=== PATIENT | female | born 2000 | race African-American/Black ===

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

== ENCOUNTER 2020-03-13 13:06 | Emergency (ER) | payer SELFPAY ==
[2020-03-13] MEDS ORDERED: NORMAL SALINE 1000 ML 1,000 ML IV ONE ×4 (13:31→18:47)
[2020-03-13] MEDS ORDERED: ONDANSETRON HCL INJ/PF 4 MG/2 ML SDV IV ONE ×3 (13:31→17:10)
[2020-03-13] MEDS ORDERED: MORPHINE SULFATE 10 MG/ML INJ IV ONE ×3 (13:31→18:47)
--- NOTE | 2020-03-13 13:34 | ER Document Report ---
ED Medical Screen (RME) - General Chief Complaint: Abdominal Pain Stated Complaint: ABDOMINAL PAIN,VOMITING Time Seen by Provider: 03/13/20 13:28 Mode of Arrival: Wheelchair Information source: Patient, Relative Notes: Patient is a 20-year-old female comes emergency room complaining of abdominal pain nausea vomiting diarrhea. Patient states she has a history of gastroparesis last attack was approximately a year ago she was diagnosed with it. She states she woke up this morning severe abdominal pain is vomited multiple times and has had one bout of diarrhea. Patient denies any other me dical problems. She denies any medications. She denies any history of . Patient was sitting in the lobby and "passed out". Her significant other was with her she did not hurt herself when she fell out of the wheelchair. Patient is writhing in pain on physical exam. Physical examination: Patient is a well-nourished well-developed 20-year-old female who is in moderate amount of discomfort and pain. Cardiac: Vital signs have not been performed yet but on auscultation patient sounds like she is tachycardic but no murmurs heard. Lung: Bilateral breath sounds breath sounds decreased throughout no rhonchi rales or wheeze heard. Abdomen: In the sitting position in a wheelchair patient is writhing around. Bowel sounds are depleted throughout all 4 quads. Minimal heard in the left l ower quadrant. Patient is diffusely tender in the abdomen. I have greeted and performed a rapid initial assessment of this patient. A comprehensive ED assessment and evaluation of the patient, analysis of test results and completion of the medical decision making process will be conducted by additional ED providers. Dictation of this chart was performed using voice recognition software; therefore, there may be some unintended grammatical errors. TRAVEL OUTSIDE OF THE [place] IN LAST 30 DAYS: No - Related Data Allergies/Adverse Reactions: amoxicillin [From Augmentin] Allergy (Verified 10/30/19 14:29) clavulanic acid [From Augmentin] Allergy (Verified 10/30/19 14:29) egg Allergy (Verified 10/30/19 14:29) Vomiting milk Allergy (Verified 10/30/19 14:29) Vomiting Past Medical History Pulmonary Medical History: Reports: Hx Asthma GI Medical History: Reports: Hx Gastroesophageal Reflux Disease - Immunizations Hx Diphtheria, Pertussis, Tetanus Vaccination: Yes
[2020-03-13 14:06] LABS: ABSOLUTE LYMPHOCYTES (AUTO) 1.9 10^3/uL (0.5-4.7); ABSOLUTE MONOCYTES (AUTO) 0.5 10^3/uL (0.1-1.4); ABSOLUTE NEUT (AUTO) 7.4 10^3/uL (1.7-8.2); APPEARANCE,URINE CLEAR; BASOPHILS % (AUTO) 0.5 % (0-2); BILIRUBIN,URINE NEGATIVE (NEGATIVE); COLOR,URINE YELLOW; EOSINOPHILS % (AUTO) 0.1 % (0-6); GLUCOSE, URINE NEGATIVE (NEGATIVE); HEMATOCRIT 44.7 % (36.0-47.0); HEMOGLOBIN 15.1 g/dL (12.0-15.5); KETONES,URINE 20 mg/dL (NEGATIVE); LEUKOCYTE ESTERASE,URINE NEGATIVE (NEGATIVE); LYMPHOCYTES % (AUTO) 19.6 % (13-45); MEAN CORPUSCULAR HEMOGLOBIN 30.7 pg (27.0-33.4); MEAN CORPUSCULAR HGB CONC 33.8 g/dL (32.0-36.0); MEAN CORPUSCULAR VOLUME 91 fl (80-97); MONOCYTES % (AUTO) 5.1 % (3-13); NITRITE,URINE NEGATIVE (NEGATIVE); PLATELET COUNT 269 10^3/uL (150-450); PROTEIN,URINE 30 mg/dL (NEGATIVE); RED BLOOD COUNT 4.93 10^6/uL (3.72-5.28); RED CELL DISTRIBUTION WIDTH 14.2 % (11.5-14.0); SEGMENTED NEUTROPHILS % (AUTO) 74.7 % (42-78); TOTAL CELLS COUNTED % (AUTO) 100 %; URINE SPECIFIC GRAVITY 1.021; UROBILINOGEN,URINE NEGATIVE mg/dL (<2.0); WHITE BLOOD COUNT 9.9 10^3/uL (4.0-10.5)
[2020-03-13 14:33] LABS: ALKALINE PHOSPHATASE 81 U/L (38-126); ANION GAP 18 (5-19); ASPARTATE AMINO TRANSFERASE 25 U/L (14-36); BILIRUBIN,TOTAL 0.7 mg/dL (0.2-1.3); BLOOD UREA NITROGEN 7 mg/dL (7-20); CALCIUM 10.4 mg/dL (8.4-10.2); CARBON DIOXIDE 12 mmol/L (22-30); CHLORIDE 110 mmol/L (98-107); GLUCOSE 109 mg/dL (75-110); POTASSIUM 3.9 mmol/L (3.6-5.0); TOTAL PROTEIN 8.7 g/dL (6.3-8.2); URINE BARBITURATES SCREEN NEGATIVE; URINE BENZODIAZEPINES SCREEN NEGATIVE; URINE COCAINE SCREEN NEGATIVE; URINE METHADONE SCREEN NEGATIVE; URINE PHENCYCLIDINE SCREEN NEGATIVE
[2020-03-13 14:36] LABS: URINE AMPHETAMINES SCREEN NEGATIVE; URINE MARIJUANA (THC) SCREEN UNCONFIRMED POSITIVE
[2020-03-13] MEDS ORDERED: DICYCLOMINE HCL 20 MG TABLET PO ONE (17:07)
--- NOTE | 2020-03-13 17:16 | ER Document Report ---
ED General - General Chief Complaint: Abdominal Pain Stated Complaint: ABDOMINAL PAIN,VOMITING Time Seen by Provider: 03/13/20 13:28 Mode of Arrival: Wheelchair Notes: Patient presents to the ER for evaluation of generalized abdominal pain with nausea, vomiting, diarrhea that began this morning. 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 Patient admits to marijuana and alcohol use yesterday to celebrate Thanksgiving last night. She denies fever. She denies cough or congestion. She denies low back pain or dysuria. Nursing notes reviewed and past medical, social, and family histories reviewed and validated. TRAVEL OUTSIDE OF THE [place] IN LAST 30 DAYS: No - Related Data Allergies/Adverse Reactions: amoxicillin [From Augmentin] Allergy (Verified 10/30/19 14:29) clavulanic acid [From Augmentin] Allergy (Verified 10/30/19 14:29) egg Allergy (Verified 10/30/19 14:29) Vomiting milk Allergy (Verified 10/30/19 14:29) Vomiting Past Medical History - General Information source: Patient, Relative - Social History Smoking Status: Current Every Day Smoker Cigarette use (# per day): Yes - 10 Chew tobacco use (# tins/day): No Smoking Education Provided: Yes Frequency of alcohol use: Social Drug Abuse: Marijuana Lives with: Family Family History: Reviewed & Not Pertinent Patient has suicidal ideation: No Patient has homicidal ideation: No - Past Medical History Cardiac Medical History: Reports: None Pulmonary Medical History: Reports: Hx Asthma EENT Medical History: Reports: None Neurological Medical History: Reports: None Endocrine Medical History: Reports: None Renal/ Medical History: Reports: None Malignancy Medical History: Reports: None GI Medical History: Reports: Hx Gastroesophageal Reflux Disease, Other - Gastroparesis Musculoskeletal Medical History: Reports None Skin Medical History: Reports None Psychiatric Medical History: Reports: None Traumatic Medical History: Reports: None Infectious Medical History: Reports: None Past Surgical History: Reports: None - Immunizations Immunizations up to date: Yes Hx Diphtheria, Pertussis, Tetanus Vaccination: Yes Review of Systems - Review of Systems Notes: Constitutional: Negative for fever. HENT: Negative for sore throat. Eyes: Negative for visual changes. Cardiovascular: Negative for chest pain. Respiratory: Negative for shortness of breath. Gastrointestinal: Positive for abdominal pain. Positive for vomiting and diarrhea. Genitourinary: Negative for dysuria. Musculoskeletal: Negative for back pain. Skin: Negative for rash. Neurological: Negative for headaches, weakness or numbness. 10 point ROS negative except as marked above and in HPI. Physical Exam - Vital signs Vitals: Temp Pulse Resp BP Pulse Ox 97.5 F 66 20 121/69 100 03/13/20 17:47 03/13/20 17:47 03/13/20 17:47 03/13/20 17:47 03/13/20 17:47 - Notes Notes: CONSTITUTIONAL: The patient appears to be in pain. She is in mild distress. SKIN: Warm, dry, and intact without rash EYES: Extraocular movements are grossly intact, clear conjunctiva HENT: Normocephalic, atraumatic, moist mucus membranes NECK: No obvious swelling, normal range of motion PULMONARY: Normal chest rise and fall. Breath sounds clear and equal bilaterally. No respiratory distress or stridor CARDIOVASCULAR: Regular rate. No murmurs, rubs, gallops. Distal extremities are warm and well perfused. ABDOMINAL: The abdomen is soft. There is tenderness in the generalized distribution. NEUROLOGIC: Normal speech, moves all extremities. Cranial nerves are within normal limits. 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 There is good strength and sensation in bilateral lower extremitie s. There is no arm or leg drift noted. MUSCULOSKELETAL: No gross deformities, atraumatic PSYCHIATRIC: Normal mood and affect Course - Re-evaluation Re-evalutation: 03/13/20 19:31 The patient feels much improved following treatment. She is refusing a repeat lactic acid because she is ready to go. She is aware that elevated lactic acid could be a sign of a metabolic or infectious issue. She will not stay for further work-up. - Vital Signs Vital signs: Temp Pulse Resp BP Pulse Ox 97.5 F 66 20 121/69 100 03/13/20 17:47 03/13/20 17:47 03/13/20 17:47 03/13/20 17:47 03/13/20 17:47 - Laboratory Result Diagrams: 03/13/20 13:45 03/13/20 13:45 Laboratory results interpreted by me: 03/13/20 03/13/20 03/13/20 13:45 13:45 13:45 RDW 14.2 H Chloride 110 H Carbon Dioxide 12 L Lactic Acid 5.3 H Calcium 10.4 H Total Protein 8.7 H Urine Protein Urine Ketones 03/13/20 13:45 RDW Chloride Carbon Dioxide Lactic Acid Calcium Total Protein Urine Protein 30 H Urine Ketones 20 H Discharge - Discharge Clinical Impression: Elevated lactic acid level, Nausea vomiting and diarrhea, Generalized abdominal pain Condition: Stable Disposition: AGAINST MEDICAL ADVICE Instructions: Abdominal Pain ([facility]) Prescriptions: Ondansetron [Zofran Odt 4 mg Tablet] 1 tab PO Q6HP PRN #12 tab.rapdis PRN Reason: For Nausea/Vomiting
[2020-03-13 17:48] VITALS: BP 121/69
[2020-03-13] MEDS ORDERED: METOCLOPRAMIDE HCL INJ/PF 10 MG/2 ML SDV IV ONE (18:47)
--- NOTE | 2020-03-13 18:50 | RADIOLOGY REPORT (SQ) ---
EXAM DESCRIPTION: CT ABD/PELVIS WITH IV ONLY IMAGES COMPLETED DATE/TIME: 03/13/2020 6:38 pm REASON FOR STUDY: abd pain COMPARISON: None. TECHNIQUE: CT scan of the abdomen and pelvis performed using helical scanning technique with dynamic intravenous contrast injection. No oral contrast. Images reviewed with lung, soft tissue, and bone windows. Reconstructed coronal and sagittal MPR images reviewed. Delayed images for evaluation of the urinary system also acquired. All images stored on PACS. All CT scanners at this facility use dose modulation, iterative reconstruction, and/or weight based d osing when appropriate to reduce radiation dose to as low as reasonably achievable (ALARA). [facility]: Dose Right [facility]: CareDose [facility]: Dose Right [facility]: Teradose 4D [facility]: A's Child CONTRAST TYPE AND DOSE: contrast/concentration: Isovue 350.00 mmol/ml; Total Contrast Delivered: 55. 0 ml; Total Saline Delivered: 43.8 ml RENAL FUNCTION: None required. The patient is less than 50 years old. RADIATION DOSE: CT Rad equipment meets quality standard of care and radiation dose reduction techniq ues were employed. CTDIvol: 4.8 - 4.9 mGy. DLP: 474 mGy-cm.. LIMITATIONS: None. FINDINGS: LOWER CHEST: No significant findings. No nodules or infiltrates. LIVER: Normal size. No masses. No dilated ducts. SPLEEN: Normal size. No focal lesions. PANCREAS: No masses. No significant calcifications. No adjacent inflammation or peripancreatic fluid collections. Pancreatic duct not dilated. GALLBLADDER: No identified stones by CT criteria. No inflammatory changes to suggest cholecystitis. ADRENAL GLANDS: No significant masses or asymmetry. RIGHT KIDNEY AND URETER: No solid masses. Minimal peripheral calculus. No hydronephrosis or hydro ureter. LEFT KIDNEY AND URETER: No solid masses. No significant calcifications. No hydronephrosis or hydr oureter. AORTA AND VESSELS: No aneurysm. No dissection. Renal arteries, SMA, celiac without stenosis. RETROPERITONEUM: No retroperitoneal adenopathy, hemorrhage or masses. BOWEL AND PERITONEAL CAVITY: No masses or inflammatory changes. No free fluid or peritoneal masses. APPENDIX: Normal. PELVIS: No mass. No free fluid. Normal bladder. ABDOMINAL WALL: No masses. No hernias. BONES: No significant or acute findings. OTHER: No other significant finding. IMPRESSION: NO SIGNIFICANT OR ACUTE FINDING IN THE ABDOMEN OR PELVIS ON CT SCAN WITH IV CONTRAST. TECHNICAL DOCUMENTATION: JOB ID: [id number] Quality ID # [id number]: Final reports with documentation of one or more dose reduction techniques (e.g., Au tomated exposure control, adjustment of the mA and/or kV according to patient size, use of iterative reconstruction technique) 2010 [employer]- All Rights Reserved Reading location - IP/workstation name: [email or web address]
== END 2020-03-13 19:34 | disposition left against medical advice (07) ==
LOC: ER 13:06
DX: R10.84 Generalized abdominal pain (principal); R11.2 Nausea with vomiting, unspecified; R19.7 Diarrhea, unspecified; R74.02 Elevation of levels of lactic acid dehydrogenase [LDH]; F17.210 Nicotine dependence, cigarettes, uncomplicated; F12.10 Cannabis abuse, uncomplicated; J45.909 Unspecified asthma, uncomplicated; Z87.19 Personal history of other diseases of the digestive system; Z88.0 Allergy status to penicillin; Z91.012 Allergy to eggs; Z91.011 Allergy to milk products
CPT/HCPCS: 99285; 96361; 96374; 96375; 36415; 87086; 83605; 83690; 84703; 85025; 80053; 81001; 80307; 74177; J3490; J2765; J2270; J2405; J7030

== ENCOUNTER 2020-03-14 00:56 | Emergency (ER) | payer SELFPAY ==
[2020-03-14] MEDS ORDERED: RINGERS SOLUTION,LACTATED 1,000 ML IV ONE (02:01)
[2020-03-14] MEDS ORDERED: HALOPERIDOL LACTATE INJ 5 MG/1 ML VIAL IM ONE (02:01)
--- NOTE | 2020-03-14 02:02 | ER Document Report ---
ED GI/ - General Chief Complaint: Nausea/Vomiting Stated Complaint: VOMITING Time Seen by Provider: 03/14/20 01:44 Notes: Patient is a 20-year-old female who comes emergency department for chief complaint of vomiting and dehydration. She states that since last night she has vomited over 10 times, she was seen her earlier today, signed out AGAINST MEDICAL ADVICE, she states that she signed out because she received Reglan and became extremely restless and could not stand waiting in the room any longer. She states that she had several shots of alcohol last night and smoked marijuana. She states that she is aware that both of these things make her symptoms worse and she has a history of "gastroparesis from alcohol and drugs". She denies history of diabetes, she denies any diagnosed medical history otherwise, she denies any daily prescriptions. She denies . She denies recreational drugs otherwise. She denies any surgeries. She denies fever/chills. TRAVEL OUTSIDE OF THE [place] IN LAST 30 DAYS: No - Related Data Allergies/Adverse Reactions: amoxicillin [From Augmentin] Allergy (Verified 10/30/19 14:29) clavulanic acid [From Augmentin] Allergy (Verified 10/30/19 14:29) egg Allergy (Verified 10/30/19 14:29) Vomiting milk Allergy (Verified 10/30/19 14:29) Vomiting Past Medical History - General Information source: Patient - Social History Smoking Status: Current Every Day Smoker Smoking Education Provided: Yes - <3 min Frequency of alcohol use: Occasional Drug Abuse: Marijuana Lives with: Family Family History: Reviewed & Not Pertinent Pulmonary Medical History: Reports: Hx Asthma GI Medical History: Reports: Hx Gastroesophageal Reflux Disease - Immunizations Immunizations up to date: Yes Hx Diphtheria, Pertussis, Tetanus Vaccination: Yes Review of Systems - Review of Systems Constitutional: No symptoms reported EENT: No symptoms reported Cardiovascular: No symptoms reported Respiratory: No symptoms reported Gastrointestinal: See HPI Genitourinary: No symptoms reported Female Genitourinary: No symptoms reported Musculoskeletal: No symptoms reported Skin: No symptoms reported Hematologic/Lymphatic: No symptoms reported Neurological/Psychological: No symptoms reported Physical Exam - Vital signs Vitals: Temp Pulse Resp BP Pulse Ox 98.8 F 88 17 131/79 H 100 03/14/20 01:03 03/14/20 01:03 03/14/20 01:03 03/14/20 01:03 03/14/20 01:03 - Notes Notes: GENERAL: Restless and agitated but still alert, cooperative HEAD: Normocephalic, atraumatic. EYES: Pupils equal, round, and reactive to light. Extraocular movements intact. ENT: Oral mucosa dry, tongue midline. Oropharynx unremarkable. Airway patent. NECK: Full range of motion. Supple. Trachea midline. No lymphadenopathy. LUNGS: Clear to auscultation bilaterally, no wheezes, rales, or rhonchi. No respiratory distress. Non-tender chest wall. HEART: Regular rate and rhythm. No murmur ABDOMEN: Soft, non-tender. Non-distended. No guarding or rigidity EXTREMITIES: Moves all 4 extremities spontaneously. No edema, normal radial and dorsalis pedis pulses bilaterally. No cyanosis. BACK: no cervical, thoracic, lumbar midline tenderness. No saddle anesthesia, normal distal neurovascular exam. Moves all extremities in full range of motion. NEUROLOGICAL: Alert and oriented x3. Normal speech. Cranial nerves II through XII grossly intact. Strength 5/5 in all extremities. PSYCH: Agitated and anxious SKIN: Warm, dry, normal turgor. No rashes or lesions noted. Course - Re-evaluation Re-evalutation: Patient is very agitated, restless, reporting extreme nausea. I did review work-up from earlier. This was nonspecific with low bicarbonate, dehydration on urine, marijuana on drug screen, and nonspecific lactic acid that was elevated. On my evaluation patient does not appear to be in distress although she is agitated. Her abdomen is actually benign, I have a low suspicion of acute abdomen based on this. CBC is unremarkable, chemistry shows improved bicarbonate at 16, I had given her lactated Ringer's. I gave her Haldol IM. After this patient was given Pepcid and Maalox. This was performed with exce llent results, patient stopped having symptoms and then fell asleep. EKG is unremarkable. I went to reevaluate the patient, patient is outside the room, standing, smiling, states appreciation, states she feels wonderful, is requesting to be discharged. Urinalysis was unremarkable earlier. Patient divided with Phenergan, Pepcid, I discussed strong return precautions against smoking marijuana, I strongly suspect cyclic vomiting syndrome based on her presentation and results with medication. Patient does state understanding and agreement. Stable and well-appearing at time of discharge. - Vital Signs Vital signs: Temp Pulse Resp BP Pulse Ox 98.0 F 81 18 129/83 H 100 03/14/20 05:26 03/14/20 05:26 03/14/20 05:26 03/14/20 05:26 03/14/20 05:26 - Laboratory Result Diagrams: 03/14/20 02:40 03/14/20 02:40 Laboratory results interpreted by me: 03/14/20 03/14/20 02:40 02:40 RDW 14.7 H Chloride 109 H Carbon Dioxide 16 L Glucose 115 H Calcium 10.5 H Total Protein 8.5 H - EKG Interpretation by Me Additional EKG results interpreted by me: EKG shows sinus rhythm at a rate of 65, QTC 437, normal axis, no T wave inversions or ST segment changes in consecutive leads, machine reads as normal Discharge - Discharge Clinical Impression: Dehydration, Cyclic vomiting syndrome Vomiting Qualifiers: Vomiting type: unspecified Vomiting Intractability: non-intractable Nausea presence: with nausea Qualified Code(s): R11.2 - Nausea with vomiting, unspecified Condition: Stable Disposition: HOME, SELF-CARE Additional Instructions: You have been treated for vomiting and dehydration tonight. Your evaluation is most consistent with cyclic vomiting syndrome. Avoid THC, this stimulates the nausea center of the brain and can result in cyclic vomiting syndrome. Drink plenty of fluids, take the Phenergan and Pepcid if needed, start with bland food. Follow-up with primary care. Return if you worsen including uncontrolled vomiting, severe abdominal pain, fever, or any other concerning symptoms. Prescriptions: Famotidine [Pepcid 20 mg Tablet] 20 mg PO BID #12 tablet Promethazine HCl [Phenergan 25 mg Tablet] 25 mg PO Q6H PRN #20 tablet PRN Reason:
[2020-03-14 02:55] LABS: ABSOLUTE LYMPHOCYTES (AUTO) 2.1 10^3/uL (0.5-4.7); ABSOLUTE MONOCYTES (AUTO) 0.9 10^3/uL (0.1-1.4); ABSOLUTE NEUT (AUTO) 6.2 10^3/uL (1.7-8.2); BASOPHILS % (AUTO) 0.5 % (0-2); HEMATOCRIT 42.5 % (36.0-47.0); HEMOGLOBIN 14.5 g/dL (12.0-15.5); LYMPHOCYTES % (AUTO) 23.2 % (13-45); MEAN CORPUSCULAR HEMOGLOBIN 31.2 pg (27.0-33.4); MEAN CORPUSCULAR HGB CONC 34.1 g/dL (32.0-36.0); MEAN CORPUSCULAR VOLUME 92 fl (80-97); MONOCYTES % (AUTO) 9.7 % (3-13); PLATELET COUNT 274 10^3/uL (150-450); RED BLOOD COUNT 4.64 10^6/uL (3.72-5.28); RED CELL DISTRIBUTION WIDTH 14.7 % (11.5-14.0); SEGMENTED NEUTROPHILS % (AUTO) 66.6 % (42-78); TOTAL CELLS COUNTED % (AUTO) 100 %; WHITE BLOOD COUNT 9.3 10^3/uL (4.0-10.5)
[2020-03-14 03:11] LABS: ALBUMIN 4.9 g/dL (3.5-5.0); ALKALINE PHOSPHATASE 79 U/L (38-126); ANION GAP 15 (5-19); ASPARTATE AMINO TRANSFERASE 31 U/L (14-36); BLOOD UREA NITROGEN 10 mg/dL (7-20); CALCIUM 10.5 mg/dL (8.4-10.2); CARBON DIOXIDE 16 mmol/L (22-30); CHLORIDE 109 mmol/L (98-107); GLUCOSE 115 mg/dL (75-110); POTASSIUM 3.7 mmol/L (3.6-5.0); TOTAL PROTEIN 8.5 g/dL (6.3-8.2)
[2020-03-14] MEDS ORDERED: FAMOTIDINE 20 MG TABLET PO ONE (04:29)
[2020-03-14] MEDS ORDERED: MAG HYDROX/AL HYDROX/SIMETH SUSP 30 ML UDCUP PO ONE (04:29)
[2020-03-14 05:27] VITALS: BP 129/83
--- NOTE | 2020-03-14 11:58 | EKG REPORT ---
SEVERITY:- BORDERLINE ECG - SINUS RHYTHM : Confirmed by: Carlin Allen MD 14-Mar-2020 11:57:25
== END 2020-03-14 05:26 | disposition home or self-care (01) ==
LOC: ER 00:56
DX: E86.0 Dehydration (principal); R11.15 Cyclical vomiting syndrome unrelated to migraine; R11.2 Nausea with vomiting, unspecified; F17.200 Nicotine dependence, unspecified, uncomplicated
CPT/HCPCS: 93005; 99284; 96372; 96360; 96361; 36415; 83690; 84703; 85025; 80053; 93010; J1630; J7120

== ENCOUNTER 2020-03-15 10:33 | Emergency (ER) | payer SELFPAY ==
[2020-03-15] MEDS ORDERED: NORMAL SALINE 1000 ML 1,000 ML IV ONE (11:00)
--- NOTE | 2020-03-15 11:02 | ER Document Report ---
ED Medical Screen (RME) - General Chief Complaint: Vomiting Stated Complaint: NAUSEA/VOMITING Time Seen by Provider: 03/15/20 11:00 Notes: HPI: 20-year-old female with history of cyclic vomiting and gastroparesis presenting for continued vomiting. This is patient's third visit in 3 days for vomiting. States she was discharged yesterday with Pepcid, Zofran, Phenergan, has Carafate at home. Tried to drink broth this morning and threw up and had diarrhea. Has not been Covid tested PHYSICAL EXAMINATION: Mild generalized tenderness on palpation of the abdomen. Alert and oriented x3. Not significantly tachycardic. Patient mildly pale I have greeted and performed a rapid initial assessment of this patient. A comprehensive ED assessment and evaluation of the patient, analysis of test results and completion of medical decision making process will be conducted by an additional ED providers. TRAVEL OUTSIDE OF THE [place] IN LAST 30 DAYS: No - Related Data Allergies/Adverse Reactions: amoxicillin [From Augmentin] Allergy (Verified 03/15/20 11:01) clavulanic acid [From Augmentin] Allergy (Verified 03/15/20 11:01) egg Allergy (Verified 03/15/20 11:01) Vomiting milk Allergy (Verified 03/15/20 11:01) Vomiting Past Medical History Pulmonary Medical History: Reports: Hx Asthma GI Medical History: Reports: Hx Gastroesophageal Reflux Disease - Immunizations Immunizations up to date: Yes Hx Diphtheria, Pertussis, Tetanus Vaccination: Yes Physical Exam - Vital signs Vitals: Temp Pulse Resp BP Pulse Ox 98.2 F 61 20 118/70 100 03/15/20 10:47 03/15/20 10:47 03/15/20 10:47 03/15/20 10:47 03/15/20 10:47 Course - Vital Signs Vital signs: Temp Pulse Resp BP Pulse Ox 98.2 F 61 20 118/70 100 03/15/20 10:47 03/15/20 10:47 03/15/20 10:47 03/15/20 10:47 03/15/20 10:47
[2020-03-15] MEDS: METOCLOPRAMIDE HCL INJ/PF 10 MG/2 ML SDV IV ONE ×2 (11:22→11:28)
[2020-03-15] MEDS ORDERED: HALOPERIDOL LACTATE INJ 5 MG/1 ML VIAL IV ONE (11:43)
[2020-03-15] MEDS ORDERED: DIPHENHYDRAMINE HCL 50 MG/ML VIAL IV ONE (11:43)
[2020-03-15 12:55] LABS: ABSOLUTE MONOCYTES (AUTO) 0.4 10^3/uL (0.1-1.4); ABSOLUTE NEUT (AUTO) 3.8 10^3/uL (1.7-8.2); BASOPHILS % (AUTO) 0.5 % (0-2); EOSINOPHILS % (AUTO) 0.1 % (0-6); HEMOGLOBIN 14.6 g/dL (12.0-15.5); LYMPHOCYTES % (AUTO) 31.7 % (13-45); MEAN CORPUSCULAR HEMOGLOBIN 30.9 pg (27.0-33.4); MEAN CORPUSCULAR VOLUME 91 fl (80-97); MONOCYTES % (AUTO) 7.1 % (3-13); RED BLOOD COUNT 4.74 10^6/uL (3.72-5.28); RED CELL DISTRIBUTION WIDTH 14.2 % (11.5-14.0); SEGMENTED NEUTROPHILS % (AUTO) 60.6 % (42-78); TOTAL CELLS COUNTED % (AUTO) 100 %; WHITE BLOOD COUNT 6.3 10^3/uL (4.0-10.5)
[2020-03-15 12:57] LABS: APPEARANCE,URINE SLIGHTLY-CLOUDY; BILIRUBIN,URINE NEGATIVE (NEGATIVE); COLOR,URINE YELLOW; GLUCOSE, URINE NEGATIVE (NEGATIVE); KETONES,URINE 80 mg/dL (NEGATIVE); LEUKOCYTE ESTERASE,URINE TRACE (NEGATIVE); NITRITE,URINE NEGATIVE (NEGATIVE); PROTEIN,URINE NEGATIVE (NEGATIVE); URINE SPECIFIC GRAVITY 1.014; UROBILINOGEN,URINE NEGATIVE mg/dL (<2.0)
--- NOTE | 2020-03-15 13:01 | ER Document Report ---
Entered by JOVANNA MANLEY SCRIBE 03/15/20 1141 Acting as scribe for:STEPAN DEMPSEY MD ED General - General Chief Complaint: Nausea/Vomiting/Diarrhea Stated Complaint: NAUSEA/VOMITING Time Seen by Provider: 03/15/20 11:00 Mode of Arrival: Ambulatory Information source: Patient Notes: This 20-year-old female patient with cyclic vomiting syndrome and gastroparesis who continues to smoke marijuana daily presents to the emergency department today with complaints of vomiting. Patient was seen here on the 27 and left AMA after having a dystonic reaction to Reglan. She came back the next day and was treated with Haldol which helped her nausea and vomiting. Her last menstrual period was February 16 2020. TRAVEL OUTSIDE OF THE [place] IN LAST 30 DAYS: No - Related Data Allergies/Adverse Reactions: amoxicillin [From Augmentin] Allergy (Verified 03/15/20 11:01) clavulanic acid [From Augmentin] Allergy (Verified 03/15/20 11:01) egg Allergy (Verified 03/15/20 11:01) Vomiting milk Allergy (Verified 03/15/20 11:01) Vomiting Past Medical History - General Information source: Patient - Social History Smoking Status: Current Every Day Smoker Cigarette use (# per day): Yes Frequency of alcohol use: Social Drug Abuse: Marijuana Lives with: Family Family History: Reviewed & Not Pertinent Patient has homicidal ideation: No Pulmonary Medical History: Reports: Hx Asthma GI Medical History: Reports: Hx Gastroesophageal Reflux Disease Surgical Hx: Negative - Immunizations Immunizations up to date: Yes Hx Diphtheria, Pertussis, Tetanus Vaccination: Yes Review of Systems - Review of Systems Constitutional: No symptoms reported EENT: No symptoms reported Cardiovascular: No symptoms reported Respiratory: No symptoms reported Gastrointestinal: See HPI, Nausea, Vomiting Genitourinary: No symptoms reported Female Genitourinary: No symptoms reported Musculoskeletal: No symptoms reported Skin: No symptoms reported Hematologic/Lymphatic: No symptoms reported Neurological/Psychological: No symptoms reported -: Yes All other systems reviewed and negative Physical Exam - Vital signs Vitals: Temp Pulse Resp BP Pulse Ox 98.2 F 61 20 118/70 100 03/15/20 10:47 03/15/20 10:47 03/15/20 10:47 03/15/20 10:47 03/15/20 10:47 - Notes Notes: Physical Exam: General: Alert, appears well. HEENT: Normocephalic. Atraumatic. PERRL. Extraocular movements intact. Oropharynx clear. Neck: Supple. Non-tender. Respiratory: No respiratory distress. Clear and equal breath sounds bilaterally. Cardiovascular: Regular rate and rhythm. Abdominal: Normal Inspection. Non-tender. No distension. Normal Bowel Sounds. Back: No gross abnormalities. Extremities: Moves all four extremities. Upper extremities: Normal inspection. Normal ROM. Lower extremities: Normal inspection. No edema. Normal ROM. Neurological: Normal cognition. AAOx4. Normal speech. Psychological: Normal affect. Normal Mood. Skin: Warm. Dry. Normal color. Course - Re-evaluation Re-evalutation: 03/15/20 14:57 The patient began feeling much better after the Haldol was given. She continues to feel well with no nausea almost 3 hours after the IV Haldol dose. - Vital Signs Vital signs: Temp Pulse Resp BP Pulse Ox 98.6 F 61 16 131/70 H 100 03/15/20 13:46 03/15/20 13:46 03/15/20 13:46 03/15/20 13:46 03/15/20 13:46 - Laboratory Result Diagrams: 03/15/20 11:55 03/15/20 11:55 Laboratory results interpreted by me: 03/15/20 03/15/20 03/15/20 11:55 11:55 11:55 RDW 14.2 H Total Bilirubin 1.9 H AST 41 H Total Protein 8.4 H Urine Ketones 80 H Ur Leukocyte Esterase TRACE H Discharge - Discharge Clinical Impression: Cyclic vomiting syndrome, Dehydration Condition: Stable Disposition: HOME, SELF-CARE Additional Instructions: Nausea or Vomiting, Nonspecific Vomiting (or nausea without vomiting) can be caused by many different problems. Of course, it can mean that something's wrong with the stomach, such as "stomach flu," ulcers, or inflammation. But it can also be a symptom of a problem that has nothing to do with the stomach or intestines. Vomiting is common with severe headaches, earaches, and tonsillitis. We see it with pneumonia or heart attacks. Drugs can cause nausea. Many abdominal problems cause vomiting; for example, gallstones, kidney stones, pancreatitis, and intestinal obstruction (blocked bowels). In most cases, curing the vomiting depends on fixing the problem that caused it. For temporary relief, we may use an anti-nausea medicine. For home use, we can prescribe suppositories, chewable pills, pills that dissolve in the mouth, or liquid anti-nausea drugs. If the vomiting seems to be caused by a problem in the stomach, acid-suppressing drugs may be prescribed as well. It's important to avoid dehydration. Sip clear liquids. Take increasing amounts of fluid over the first 24 hours. Then start small amounts of bland foods (such as dry toast, applesauce, mashed potato). Avoid aspirin, tobacco, and alcohol. Gradually resume your usual diet. If the vomiting worsens, if the problem that's making you vomit worsens, or if there's evidence of bleeding in the stomach (such as black, tarry stool, bloody or black vomit, or lightheadedness), you should return immediately. Call your doctor if you aren't improved in 24 to 36 hours. Your nausea with vomiting abdominal pain is quite likely due to marijuana use causing something called cyclic vomiting syndrome or cannabinoid hyperemesis. Take the Zofran and Haldol as prescribed for the nauseousness. Drink cool clear liquids today and then slowly advance your diet. You will need to stop smoking marijuana for at least a month in order to determine if that is a contributor to your illness. Follow-up with a local primary care provider for further management of your nausea and vomiting. RETURN TO THE EMERGENCY ROOM IF ANY NEW OR WORSENING SYMPTOMS. Prescriptions: Haloperidol [Haldol 2 Mg Tablet] 2 mg PO Q6 PRN #8 tablet PRN Reason: Ondansetron [Zofran Odt 4 mg Tablet] 1 tab PO ASDIR PRN #14 tab.rapdis PRN Reason: I personally performed the services described in the documentation, reviewed and edited the documentation which was dictated to the scribe in my presence, and it accurately records my words and actions.
[2020-03-15 13:14] LABS: ALBUMIN 4.9 g/dL (3.5-5.0); ALKALINE PHOSPHATASE 78 U/L (38-126); ANION GAP 13 (5-19); ASPARTATE AMINO TRANSFERASE 41 U/L (14-36); BILIRUBIN,DIRECT 0.1 mg/dL (0.0-0.4); BILIRUBIN,TOTAL 1.9 mg/dL (0.2-1.3); BLOOD UREA NITROGEN 9 mg/dL (7-20); CARBON DIOXIDE 24 mmol/L (22-30); CHLORIDE 103 mmol/L (98-107); GLUCOSE 95 mg/dL (75-110); POTASSIUM 3.7 mmol/L (3.6-5.0); TOTAL PROTEIN 8.4 g/dL (6.3-8.2)
[2020-03-15 13:17] LABS: PLATELET COUNT 255 10^3/uL (150-450)
[2020-03-15] MEDS ORDERED: DEXTROSE 5%-LACTATED RINGERS 1,000 ML IV ONE (13:31)
[2020-03-15 15:17] VITALS: BP 117/67
== END 2020-03-15 15:28 | disposition home or self-care (01) ==
LOC: ER 10:33
DX: R11.15 Cyclical vomiting syndrome unrelated to migraine (principal); E86.0 Dehydration; R11.2 Nausea with vomiting, unspecified; R19.7 Diarrhea, unspecified; F17.210 Nicotine dependence, cigarettes, uncomplicated
CPT/HCPCS: 99283; 36415; 85025; 80053; 81001; J1200; J1630; J7121; J7030; J2765